=== PATIENT | male | born 1940 | race Native Hawaiian/Other Pacific Islander ===

== ENCOUNTER → 2017-12-07 | Outpatient (CLI) | payer OTHER | LOC: BHLMT 10:00 | PROVIDERS: ATTEND Internal Medicine Cardiovascular Disease | DX: R01.1 Cardiac murmur, unspecified (principal); R06.09 Other forms of dyspnea; R09.89 Other specified symptoms and signs involving the circulatory and respiratory systems | CPT/HCPCS: 93306-PO; 93880-PO ==

== ENCOUNTER → 2017-12-12 | Outpatient (CLI) | payer OTHER ==
[~2017-12-12] MED LIST: IOPAMIDOL (ISOVUE 370) 100 ML BTL IV ONE
== END ==
LOC: FIMAGING 14:29
PROVIDERS: ATTEND Nurse Practitioner Family
DX: I65.23 Occlusion and stenosis of bilateral carotid arteries (principal); R07.9 Chest pain, unspecified; R94.31 Abnormal electrocardiogram [ECG] [EKG]; M50.30 Other cervical disc degeneration, unspecified cervical region; R93.8 Abnormal findings on diagnostic imaging of other specified body structures
CPT/HCPCS: 70498; Q9967

== ENCOUNTER → 2017-12-13 | Outpatient (CLI) | payer OTHER | LOC: BHLMT 13:30 | PROVIDERS: ATTEND Internal Medicine Cardiovascular Disease | DX: R94.31 Abnormal electrocardiogram [ECG] [EKG] (principal); R06.09 Other forms of dyspnea; I25.10 Atherosclerotic heart disease of native coronary artery without angina pectoris; I45.10 Unspecified right bundle-branch block | CPT/HCPCS: 78452; 93017; A9500; J2785 ==

== ENCOUNTER → 2017-12-21 | Outpatient (CLI) | payer OTHER | LOC: FIMAGING 10:12 | PROVIDERS: ATTEND Nurse Practitioner Family | DX: E04.1 Nontoxic single thyroid nodule (principal) ==

== ENCOUNTER 2018-01-05 06:03 | Inpatient (IN) | payer OTHER ==
[2018-01-05] MEDS ORDERED: ceFAZolin 2 GM/SWFI 2 GM/20 ML SYR IVP ONE (06:24)
[2018-01-05] MEDS ORDERED: LR 1,000 ML IV ONE (06:26)
[2018-01-05] MEDS ORDERED: ceFAZolin 2 GM/DEXTROSE 100 ML IV ONE (07:00)
[2018-01-05] MEDS ORDERED: BUPIVACAINE 0.25% 30 ML SDV ONE (07:05)
[2018-01-05] MEDS ORDERED: PROTAMINE SULFATE 50 MG/5 ML VIAL IVP ONE (07:05)
[2018-01-05] MEDS ORDERED: THROMBIN (BOVINE) 20,000 UNIT SPRAY TP ONE (07:05)
--- NOTE | 2018-01-05 07:15 | PDHPUP ---
History & Physical Update H&P update statement: This history and physical update is based on an assessment of the patient which was completed after admission or registration (within 24 hours), but prior to the surgery/procedure. H&P update: H&P reviewed & patient examined, no change in patient's condition since H&P completed
--- NOTE | 2018-01-05 07:37 | PDANEPAE ---
ANE History of Present Illness L Carotid artery stenosis ANE Past Medical History - Cardiovascular History Hx Hypertension: Yes Hx Arrhythmias: No Hx Chest Pain: No Hx Coronary Artery / Peripheral Vascular Disease: Yes Hx CHF / Valvular Disease: No Hx Palpitations: No Cardiovascular History Comment: HEART MURMUR - ASYMPTOMATIC. HYPERLIPIDEMIA - Pulmonary History Hx COPD: No Hx Asthma/Reactive Airway Disease: No Hx Recent Upper Respiratory Infection: No Hx Oxygen in Use at Home: No Hx Sleep Apnea: No Sleep Apnea Screening Result - Last Documented: Negative - Neurologic History Hx Cerebrovascular Accident: No Hx Seizures: No Hx Dementia: No - Endocrine History Hx Diabetes: No Hyperthyroid: No Obesity: no Endocrine History Comment: HYPOTHYROID? - Renal History Hx Renal Disorders: No - Liver History Hx Hepatic Disorders: No - Neurological & Psychiatric Hx Hx Neurological and Psychiatric Disorders: No - Cancer History Hx Cancer: No - Congenital Disorder History Hx Congenital Disorders: No - GI History GERD: no Hx Gastrointestinal Disorders: No Gastrointestinal History Comment: OCCAS HEARTBURN - Other Health History Other Health History: NEG - Chronic Pain History Chronic Pain: Yes (BACK PAIN/LEG) - Surgical History Prior Surgeries: NONE ANE Review of Systems Review of Systems: - Exercise capacity METS (RN): 4 METS ANE Patient History - Allergies Allergies/Adverse Reactions: No Known Allergies Allergy (Verified 01/05/18 06:30) - Home Medications Home Medications: Acetaminophen [Tylenol 325mg (*)] 650 mg PO DAILY 12/27/17 [Last Taken 01/04/18] Aspirin EC [Aspirin EC 81 mg (*)] 162 mg PO DAILY 12/27/17 [Last Taken 01/04/18] Atorvastatin Calcium 80 mg PO DAILY 12/27/17 [Last Taken 01/04/18] Ibuprofen [Motrin (*)] 200 - 600 mg PO BID PRN 12/27/17 [Last Taken 12/29/17] Lisinopril [Zestril 20 mg (*)] 20 mg PO HS 12/27/17 [Last Taken 01/04/18] Lisinopril/Hctz 20/12.5MG [Zestoretic/Prinzide 20/12.5MG (*)] 1 ea PO DAILY 12/09 [Last Taken 01/04/18] - NPO status NPO Since - Liquids (Date): 01/04/18 NPO Since - Liquids (Time): 18:00 NPO Since - Solids (Date): 01/04/18 NPO Since - Solids (Time): 18:00 - Smoking Hx Smoking Status: Former smoker Marijuana use: No - Alcohol Use Alcohol Use: Rarely - Family Anes Hx Family Anes Hx: neg - N/A Family Hx Anesthesia Complications: NEG ANE Labs/Vital Signs - Vital Signs Blood Pressure: 157/102 Heart Rate: 80 Respiratory Rate: 16 O2 Sat (%): 93 Height: 165.1 cm Weight: 74.843 kg ANE Physical Exam - Airway Neck exam: FROM Mallampati Score: Class 3 Mouth exam: dentures - Pulmonary Pulmonary: no respiratory distress, no rales or rhonchi, clear to auscultation - Cardiovascular Cardiovascular: regular rate and rhythym, systolic murmur, carotid bruit (L carotid bruit) - ASA Status ASA Status: III ANE Anesthesia Plan Anesthesia Plan: general endotracheal anesthesia Lines/Monitors: arterial line Total IV Anesthesia: No
[2018-01-05] MEDS ORDERED: ONDANSETRON 4 MG/2 ML VIAL ONE ×2 (08:01→11:26)
[2018-01-05] MEDS ORDERED: PROPOFOL 200 MG/20 ML VIAL ONE (08:01)
[2018-01-05] MEDS ORDERED: ROCURONIUM 50 MG/5 ML VIAL ONE (08:01)
[2018-01-05] MEDS ORDERED: DEXAMETHASONE 4 MG/ML VIAL ONE (08:01)
[2018-01-05] MEDS ORDERED: fentaNYL 100 MCG/2 ML INJ ONE ×5 (08:01→11:26)
[2018-01-05] MEDS ORDERED: PHENYLEPHRINE HCL 100 MCG/ML SYR ONE (08:02)
[2018-01-05] MEDS ORDERED: LIDOCAINE 2% 5 ML SDV ONE (08:03)
[2018-01-05] MEDS ORDERED: HEPARIN 10,000 UNIT/10 ML MDV (1,000 UNIT/ML) ONE (08:15)
[2018-01-05] MEDS ORDERED: GLYCOPYRROLATE 0.2 MG/1 ML VIAL ONE ×2 (08:49)
[2018-01-05] MEDS ORDERED: NALOXONE HCL 0.4 MG/ML INJ IVP PRN (09:14)
[2018-01-05] MEDS ORDERED: HYDROCODONE/APAP 5/325 TAB PO PRN (09:14)
[2018-01-05] MEDS ORDERED: PHENYLEPHRINE HCL 100 MCG/ML SYR IVP PRN (09:14)
[2018-01-05] MEDS ORDERED: oxyCODONE IR 5 MG TAB PO PRN (09:14)
[2018-01-05] MEDS ORDERED: LR 500 ML IV PRN (09:14)
[2018-01-05] MEDS ORDERED: LABETALOL HCL 5 MG/ML 20 ML MDV IVP PRN (09:14)
[2018-01-05] MEDS ORDERED: ONDANSETRON 4 MG/2 ML VIAL IVP PRN ×2 (09:14→11:08)
[2018-01-05] MEDS ORDERED: ACETAMINOPHEN 500 MG TAB PO PRN (09:14)
[2018-01-05] MEDS ORDERED: PROMETHAZINE HCL 25 MG/ML INJ IVP PRN (09:14)
[2018-01-05] MEDS ORDERED: NALOXONE HCL 0.4 MG/ML INJ ONE (10:32)
[2018-01-05] MEDS ORDERED: HYDROmorphone HCL/NS 0.5 MG/ML SYR IVP PRN (11:07)
[2018-01-05] MEDS: fentaNYL 100 MCG/2 ML INJ IVP PRN ×3 (11:10→11:40)
[2018-01-05] MEDS ORDERED: ACETAMINOPHEN 325 MG TAB PO PRN (11:11)
--- NOTE | 2018-01-05 11:14 | POSTOPPROG ---
Post Op Note Date of Operation: 01/05/18 Surgeon: Sahil Gannon Antique Furniture Repairer: Thong Anesthesiologist: Henok Anesthesia: GET(General Endotracheal) Pre-op Diagnosis: Carotid stenosis Post-op Diagnosis: same Indication: same Procedure: Left carotid endarterectomy Findings: Severe stenosis of the left carotid bulb and proximal ICA Inf/Abcess present in the surg proc area at time of surgery?: No Depth: Deep Incisional (Fascial) EBL: 50-100 Specimen(s): Left cervical lymph node Left carotid plaque
[2018-01-05] MEDS ORDERED: KETOROLAC 30 MG/1 ML SDV IVP ONE (11:19)
--- NOTE | 2018-01-05 11:20 | POSTANESTH ---
Post Anesthetic Evaluation Cardiovascular Status: Normal, Stable Respiratory Status: Normal, Stable Level of Consciousness/Mental Status: Can Participate in Eval Pain Control: Adequate, Prn Tx Ordered Nausea/Vomiting Control: Adequate, Prn Tx Ordered Complications Possibly Related to Anesthesia: None Noted
[2018-01-05] MEDS ORDERED: KETOROLAC 30 MG/1 ML SDV ONE (11:36)
[2018-01-05] MEDS: OXYCODONE/APAP 5/325 TAB PO PRN ×3 (14:11→23:19)
--- NOTE | 2018-01-05 16:39 | PDMN ---
Medical Necessity Medical necessity: IP surgery per [facility] cpt 43609 L CEA
[2018-01-05] MEDS: ASPIRIN 81 MG CHEWABLE TAB PO SCH (18:19)
--- NOTE | 2018-01-05 19:33 | SOAPPROG ---
LIZABETH Progress Note Assessment/Plan: Assessment: Doing well status post left carotid endarterectomy/neuro intact/wound okay Plan: Home in the a.m. 01/05/18 19:32 Objective: Vital Signs Temp Pulse Resp BP Pulse Ox 36.2 C 80 14 109/57 L 96 01/05/18 16:00 01/05/18 18:00 01/05/18 18:00 01/05/18 18:00 01/05/18 18:00 01/04/18 01/05/18 01/06/18 05:59 05:59 05:59 Intake Total 1989 Output Total 35 Balance 195 ICD10 Worksheet Patient Problems: Problems Problem Status Onset Carotid stenosis, asymptomatic Acute - ICD10 Problem Qualifiers (1) Carotid stenosis, asymptomatic Qualifiers: Laterality: left Qualified Code(s): I65.22 - Occlusion and stenosis of left carotid artery
[2018-01-06] MEDS: OXYCODONE/APAP 5/325 TAB PO PRN (07:25)
[2018-01-06] MEDS: ASPIRIN 81 MG CHEWABLE TAB PO SCH (07:26)
[2018-01-06] MEDS ORDERED: ASPIRIN EC 81 MG TAB PO SCH (09:15)
[2018-01-06] MEDS ORDERED: LISINOPRIL/HCTZ 20/12.5MG 1 EA TAB PO SCH (09:15)
--- NOTE | 2018-01-06 10:00 | ASMTCASEMG ---
Living Arrangements What is your living Answers: Alone arrangement? Who do you live with? Type Of Residence What kind of residence do Answers: Apartment you live in? Discharge Plan Comments Coordination Status Comments Notes: Patient is a 77yo male who was admitted for a left carotid endarterectomy and is doing well post procedure. Plan is for patient to return home today independently. No therapies ordered. CM available if d/c needs arise. Date Signed: 01/06/2018 09:59 AM Electronically Signed By:Lucie Mccabe LCSW
[2018-01-06] MEDS: ATORVASTATIN CALCIUM 40 MG TAB PO SCH (10:28)
[2018-01-06] MEDS: IBUPROFEN 200 MG TAB PO PRN ×2 (10:28→21:38)
[2018-01-06] MEDS ORDERED: ACETAMINOPHEN 325 MG TAB PO SCH (12:00)
[2018-01-06] MEDS: oxyCODONE IR 5 MG TAB PO PRN ×2 (13:17→18:52)
--- NOTE | 2018-01-06 16:35 | SOAPPROG ---
LIZABETH Progress Note Assessment/Plan: Assessment: Doing well status post left carotid endarterectomy/neuro intact/wound okay Plan: Home in the a.m. 01/05/18 19:32 01/06/18 16:31 Doing well today except for some dizziness/neuro exam intact/wound okay/vital signs stable Possibly home in the a.m. If no further dizziness Neuro exam intact Chest clear Cor regular rhythm Abdomen soft Genitalia okay Objective: Vital Signs Temp Pulse Resp BP Pulse Ox 36.2 C 73 8 L 107/52 L 99 01/05/18 16:00 01/06/18 12:00 01/06/18 12:00 01/06/18 12:00 01/06/18 12:00 01/05/18 01/06/18 01/07/18 05:59 05:59 05:59 Intake Total 2240 240 Output Total 535 Balance 1705 240 ICD10 Worksheet Patient Problems: Problems Problem Status Onset Carotid stenosis, asymptomatic Acute - ICD10 Problem Qualifiers (1) Carotid stenosis, asymptomatic Qualifiers: Laterality: left Qualified Code(s): I65.22 - Occlusion and stenosis of left carotid artery
[2018-01-06] MEDS ORDERED: LISINOPRIL 20 MG TAB PO SCH (21:00)
[2018-01-07] MEDS: IBUPROFEN 200 MG TAB PO PRN (08:27)
[2018-01-07] MEDS ORDERED: ACETAMINOPHEN 325 MG TAB PO SCH (09:00)
[2018-01-07] MEDS: ATORVASTATIN CALCIUM 40 MG TAB PO SCH (09:16)
[2018-01-07] MEDS: ASPIRIN 81 MG CHEWABLE TAB PO SCH (09:16)
[2018-01-07] MEDS: oxyCODONE IR 5 MG TAB PO PRN (13:31)
--- NOTE | 2018-01-07 14:24 | SOAPPROG ---
LIZABETH Progress Note Assessment/Plan: Assessment: Doing well status post left carotid endarterectomy/neuro intact/wound okay Plan: Home in the a.m. 01/05/18 19:32 01/06/18 16:31 Doing well today except for some dizziness/neuro exam intact/wound okay/vital signs stable Possibly home in the a.m. If no further dizziness Neuro exam intact Chest clear Cor regular rhythm Abdomen soft Genitalia okay 01/07/18 14:24 Doing well today status post left carotid endarterectomy/neuro intact/vital signs stable/wound okay Plan home today/follow-up next week in the office Objective: Vital Signs Temp Pulse Resp BP Pulse Ox 36.6 C 73 14 124/75 H 95 01/07/18 08:00 01/07/18 08:00 01/07/18 08:00 01/07/18 08:00 01/07/18 08:00 01/06/18 01/07/18 01/08/18 05:59 05:59 05:59 Intake Total 2240 1390 Output Total 535 0 Balance 1705 1390 ICD10 Worksheet Patient Problems: Problems Problem Status Onset Carotid stenosis, asymptomatic Acute - ICD10 Problem Qualifiers (1) Carotid stenosis, asymptomatic Qualifiers: Laterality: left Qualified Code(s): I65.22 - Occlusion and stenosis of left carotid artery
[2018-01-07 14:45] VITALS: BP 120/68
== END 2018-01-07 15:12 | disposition home or self-care (01) | DRG 39 ==
LOC: F2W 06:03 → F2N 12:08
PROVIDERS: ADMIT Surgery; ATTEND Surgery
PROC: 07B20ZX Excision of Left Neck Lymphatic, Open Approach, Diagnostic (ICD-10-PCS; principal; 2018-01-05 08:00)
PROC: 03CL0ZZ Extirpation of Matter from Left Internal Carotid Artery, Open Approach (ICD-10-PCS; principal; 2018-01-05 08:00)
DX: I65.23 Occlusion and stenosis of bilateral carotid arteries (principal); I10 Essential (primary) hypertension; E78.5 Hyperlipidemia, unspecified; E03.9 Hypothyroidism, unspecified; Z87.891 Personal history of nicotine dependence
CPT/HCPCS: C1768; J0690; J1100; J1170; J1644; J1885; J2310; J2370; J2405; J2704; J2720; J3010

== ENCOUNTER 2018-01-11 09:08 | Emergency (ER) | payer OTHER ==
--- NOTE | 2018-01-11 10:55 | EDPHY ---
HPI/HX/ROS/PE/MDM Narrative: CHIEF COMPLAINT: Left-sided neck pain HISTORY OF PRESENT ILLNESS: The patient is a 77 y/o male complaining of waxing and waning, left-sided, pulsating neck pain s/p left carotid endarterectomy on 01/05/18, 6 days ago. After being discharged following a 2 day admission in ICU, he did not turkey picker his pain medications as the patient's name was incorrect on the prescription. For the first 3 days after his discharge the pain was controlled with ibuprofen. Yesterday the patient developed pain in his left neck associated with swelling starting in his left lateral neck and radiating up to his left ear. He is unable to turn his head to the right due to the pain. His daughter denies difficulties with speech or extremity weakness. No fever, chills, chest pain, shortness of breath, palpitations, vomiting, diarrhea, urinary complaints, headache, lightheadedness. A statistics teacher was used during my exam to communicate with the patient. REVIEW OF SYSTEMS: Aside from elements discussed in the HPI, a comprehensive 10-point review of systems was reviewed and is negative. PAST MEDICAL HISTORY: Left carotid stenosis requiring endarterectomy, hypertension, hyperlipidemia SOCIAL HISTORY: and daughter at bedside, lives in [place], retired VITAL SIGNS: Reviewed by me GENERAL: Well-developed, well-nourished, resting comfortably in no respiratory distress. HEENT: Atraumatic. Eyes: No icterus, no injection. Mouth: moist mucous membranes. No erythema or lesions. Neck: Well-healing scar on left side of neck. There is a significant amount of tenderness and fluctuance at the very top his neck anterior to the tragus. Tenderness and firmness going down carotid. Left-sided neck decreased sensation LUNGS: Clear to auscultation bilaterally, no wheezes, rhonchi or rales. CARDIAC: Regular rate and rhythm, no rubs, murmurs or gallops. ABDOMEN: Soft, nontender, nondistended, bowel sounds normal. BACK: No CVA tenderness. EXTREMITIES: No trauma. No edema. Range of motion is normal throughout. NEURO: Alert and oriented, grossly nonfocal. SKIN: Warm and dry, no rash. PSYCHIATRIC: Normal mentation, no agitation. Portions of this note were transcribed by a medical administrative technician. I personally performed a history, physical exam, medical decision making, and confirmed accuracy of information the transcribed note. ED Course: The patient is a 77 y/o male presenting with a waxing and waning, left-sided, pulsating neck pain s/p left carotid endarterectomy on 01/05/18, 6 days ago. On exam he has a well-healing scar on the left side of his neck. There is a significant amount of tenderness and fluctuance at the very top his left neck, anterior to the tragus. He also has tenderness and firmness going down the left carotid and left-sided neck decreased sensation. Labs and left-sided carotid US ordered. 1118: Consulted with Dr. Gannon, general surgeon, regarding this patient. 1 tab PO Percocet administered. 1254: Spoke with radiologist regarding patient's US, there is a fluid collection superior to the left carotid that is impinging internal jugular vein. 1330: Consulted with Dr. Gannon, he believes the patient is safe to return home with a follow up at his office tomorrow. 1350: Reassessed patient and discussed radiologist findings. I have advised the patient to follow up with Dr. Gannon and take Percocet as prescribed. Return precautions provided; patient is comfortable with this plan. MDM: Diff dx considered included but not limited to post op swelling, cellulitis, venous thrombus, fistula. - Data Points Imaging Results: US Impression: 1. Postoperative collection left side of neck superficial to the carotid vessels without significant compression upon the arterial system with only mild compression upon the internal jugular vein. 2. Adequate flow is seen within the CCA as well as carotid bulb and ICA on the left. Findings discussed with Cait Power MD at 12:54 hour, 01/11/2018. Dictated By: Ciro Lazcano MD Imaging: Discussed imaging studies w/ banquet server on call Radiologist Laboratory Results: Laboratory Results 01/11/18 12:23 01/11/18 12:23 Medications Given: Discontinued Medications Oxycodone/Acetaminophen (Percocet 5/325) 1 tab PO EDNOW ONE Stop: 01/11/18 11:37 Last Admin: 01/11/18 11:39 Dose: 1 tab General Time Seen by Provider: 01/11/18 10:51 Initial Vital Signs: Initial Vital Signs Temperature (C) 36.9 C 01/11/18 09:17 Heart Rate 66 01/11/18 09:17 Respiratory Rate 18 01/11/18 09:17 Blood Pressure 129/89 H 01/11/18 09:17 O2 Sat (%) 96 01/11/18 09:17 O2 Delivery Mode Room Air Allergies/Adverse Reactions: No Known Allergies Allergy (Verified 01/11/18 09:16) Home Medications: Medication Instructions Recorded Acetaminophen [Tylenol 325mg (*)] 650 mg PO DAILY 12/27/17 Aspirin EC [Aspirin EC 81 mg (*)] 162 mg PO DAILY 12/27/17 Atorvastatin Calcium 80 mg PO DAILY 12/27/17 Ibuprofen [Motrin (*)] 200 - 600 mg PO BID PRN 12/27/17 Lisinopril [Zestril 20 mg (*)] 20 mg PO HS 12/27/17 Lisinopril/Hctz 20/12.5MG 1 ea PO DAILY 12/27/17 [Zestoretic/Prinzide 20/12.5MG (*)] oxyCODONE/APAP 5/325 [Percocet 1 tab PO QID PRN #14 tab 01/11/18 5/325 (*)] Departure - Departure Disposition: Home, Routine, Self-Care Clinical Impression: Other acute postoperative pain, Status post carotid endarterectomy, Hematoma of neck Condition: Good Instructions: Carotid Endarterectomy (DC), Hematoma (ED), Acute Neck Pain (ED) Additional Instructions: Take Percocet as prescribed for pain. Follow up with Dr. Gannon, general surgeon, tomorrow without fail. Return to the Emergency Department for fever, chest pain, shortness of breath, increasing pain or other worsening of condition. - [place] Percocet a massiel se le nunez recetado para el dolor. - [place] seguimiento con el Dr. Gannon, [facility], maana sin falta. - Regrese a la johnnie de emergencia si tiene fiebre, dolor de pecho, falta de respiracion, mas dolor o si ruvalcaba condicion empeora. Referrals: Sahli Gannon MD [Primary Care Provider] - As per Instructions Prescriptions: oxyCODONE/APAP 5/325 [Percocet 5/325 (*)] 1 tab PO QID PRN #14 tab PRN Reason: Pain Print Language: Filipino Report Scribed for: Cait Power Report Scribed by: Madina Morgan Date of Report: 01/11/18 Time of Report: 10:54
[2018-01-11] MEDS ORDERED: OXYCODONE/APAP 5/325 TAB PO ONE (11:36)
[2018-01-11 12:40] LABS: PLATELET COUNT 246 10^3/uL (150-400)
[2018-01-11 14:13] VITALS: BP 162/95
--- NOTE | 2018-01-14 20:00 | GCON ---
[f rep st] CONSULTATION ER CONSULTATION DATE OF CONSULTATION: 01/11/2018 The patient was seen in the ER complaining of left neck pain. He was 2 days status post left carotid endarterectomy. He has had no neurologic symptoms. No nausea, vomiting, no coughing, but complains of some incisional pain on the left. He has not been using any pain pills other than Tylenol or Adv il. Examination in the ER with ultrasound reveals patent arterial system with a longitudinal subfasc ial hematoma with no active bleeding and no evidence of any pseudoaneurysm. PHYSICAL EXAMINATION: HEAD AND NECK: Reveal no icterus or adenopathy. No bruits. Has some very mi ld swelling in the left neck consistent with recent surgery and a normal healing incision. His neck is supple with full range of motion. There are no oral lesions and evidence of retropharyngeal hemat jamal. His tongue has normal mobility. His cranial nerves are all intact. CHEST: Clear. CARDIAC: Regular rhythm. ABDOMEN: Soft. EXTREMITIES: Benign with full pulses, full range of motion. NEURO LOGIC: Physiologic. IMPRESSION: Normal postoperative swelling. PLAN: The patient has been instructed to use some oral pain medicines which he had been prescribed a nd he will be followed up in the office in 48 hours. /[id number]/MODL
== END 2018-01-11 14:11 | disposition home or self-care (01) ==
DX: I97.638 Postprocedural hematoma of a circulatory system organ or structure following other circulatory system procedure (principal); I10 Essential (primary) hypertension; Z79.82 Long term (current) use of aspirin